=== PATIENT | female | born 1980 | race Caucasian/White ===

== ENCOUNTER 2018-11-14 11:56 | Emergency (ER) | payer BC ==
[2018-11-14] MEDS ORDERED: Ondansetron 4 MG/2 ML SDV IVPUSH ONE (11:57)
[2018-11-14] MEDS ORDERED: Sodium Chloride 0.9% 1,000 ML IV SCH ×2 (12:00→13:30)
--- NOTE | 2018-11-14 12:39 | EDM.PDOC ---
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 3 days ago found out that demise at 8 weeks. cramping started this AM with vaginal bleeding. 1 hour prior to arrival she did faint while on toilet with clot passing. She subsequently had 2 more syncopal episodes. nausea with one emesis. 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 Denies: Fever Respiratory: Denies: Shortness of Breath, Wheezing Cardiovascular: Denies: Chest Pain GI/Abdominal: Reports: Diarrhea ED EXAM, GI/ABD - Physical Exam Exam: See Below Exam Limited By: No Limitations General Appearance: Alert, WD/WN, Moderate Distress Head: Atraumatic, Normocephalic Neck: Normal Inspection, Supple, Non-Tender, Full Range of Motion. No: Lymphadenopathy (R), Lymphadenopathy (L) Respiratory/Chest: No Respiratory Distress, Lungs Clear, Normal Breath Sounds. No: Crackles, Rhonchi, Wheezing Cardiovascular: Regular Rate, Rhythm, No Murmur Course - Vital Signs Last Recorded V/S: Last Vital Signs Temp 35.3 C 11/14/18 12:12 Pulse 79 11/14/18 13:27 Resp 16 11/14/18 12:12 BP 100/57 L 11/14/18 13:27 Pulse Ox 100 11/14/18 13:27 - Orders/Labs/Meds Orders: Active Orders 24 hr Category Date Time Status Sodium Chloride 0.9% [Normal Saline] 1,000 ml Med 11/14/18 12:00 Active IV ASDIRECTED Sodium Chloride 0.9% [Normal Saline] 1,000 ml Med 11/14/18 13:30 Active IV ASDIRECTED Medication Orders Sodium Chloride (Normal Saline) 1,000 mls @ 999 mls/hr IV ASDIRECTED TATIANNA Last Admin: 11/14/18 12:00 Dose: 999 mls/hr Sodium Chloride (Normal Saline) 1,000 mls @ 999 mls/hr IV ASDIRECTED TATIANNA Last Admin: 11/14/18 13:32 Dose: 999 mls/hr Labs: Laboratory Tests 11/14/18 Range/Units 11:57 WBC 12.0 H (4.5-11.0) K/uL RBC 3.69 (3.30-5.50) M/uL Hgb 10.8 L D (12.0-15.0) g/dL Hct 33.2 L (36.0-48.0) % MCV 90 (80-98) fL MCH 29 (27-31) pg MCHC 33 (32-36) % Plt Count 325 (150-400) K/uL Neut % (Auto) 72 H (36-66) % Lymph % (Auto) 17 L (24-44) % [place] % (Auto) 8 H (2-6) % Eos % (Auto) 2 (2-4) % Baso % (Auto) 0 (0-1) % Meds: Medications Generic Name Dose Route Start Last Admin Trade Name Freq PRN Reason Stop Dose Admin Sodium Chloride 1,000 mls @ 999 mls/hr 11/14/18 12:00 11/14/18 12:00 Normal Saline IV 999 mls/hr ASDIRECTED TATIANNA Administration Sodium Chloride 1,000 mls @ 999 mls/hr 11/14/18 13:30 11/14/18 13:32 Normal Saline IV 999 mls/hr ASDIRECTED TATIANNA Administration Discontinued Medications Generic Name Dose Route Start Last Admin Trade Name Freq PRN Reason Stop Dose Admin Ondansetron HCl 4 mg 11/14/18 11:57 11/14/18 12:16 Zofran IVPUSH 11/14/18 11:58 4 mg ONETIME ONE Administration - Re-Assessments/Exams Free Text/Narrative Re-Assessment/Exam: 11/14/18 14:10 nausea resolved. pt did have a small amount of tissue pass vaginally. bleeding has slowed. sister is present at bedside. 11/14/18 14:41 was able to stand without dizziness. Sister will stay with pt at home. was able to urinate ready to go home Departure - Departure Time of Disposition: 14:42 Disposition: Home, Self-Care 01 Condition: Good Clinical Impression: Spontaneous Syncope Qualifiers: Syncope type: vasovagal syncope Qualified Code(s): R55 - Syncope and collapse - Discharge Information *PRESCRIPTION DRUG MONITORING PROGRAM REVIEWED*: Not Applicable *COPY OF PRESCRIPTION DRUG MONITORING REPORT IN PATIENT BEATRICE: Not Applicable Instructions: Syncope, [id number] Referrals: PCP,None [Primary Care Provider] - Forms: ED Department Discharge Additional Instructions: sips of fluids follow-up with facing baster jumpbasting return with increase bleeding, fever, or continued syncope - My Orders Last 24 Hours: My Active Orders 11/14/18 12:00 Sodium Chloride 0.9% [Normal Saline] 1,000 ml IV ASDIRECTED 11/14/18 13:30 Sodium Chloride 0.9% [Normal Saline] 1,000 ml IV ASDIRECTED - Assessment/Plan Last 24 Hours: My Active Orders 11/14/18 12:00 Sodium Chloride 0.9% [Normal Saline] 1,000 ml IV ASDIRECTED 11/14/18 13:30 Sodium Chloride 0.9% [Normal Saline] 1,000 ml IV ASDIRECTED
== END 2018-11-14 14:59 | disposition home or self-care (01) ==
LOC: JP.ED 11:56
DX: O03.9 Complete or unspecified spontaneous abortion without complication (principal)
CPT/HCPCS: 36415; 85025; 96361; 96374; 99284; J2405; J7030

== ENCOUNTER 2020-01-02 09:26 | Observation (INO) | payer BC ==
[2020-01-02] MEDS ORDERED: Sodium Chloride 0.9% 10 ML Syringe FLUSH PRN (10:35)
[2020-01-02] MEDS ORDERED: Sodium Chloride 0.9% 1,000 ML IV SCH (10:45)
[2020-01-02] MEDS ORDERED: Sodium Chloride 0.9% 500 ML IV ONE (10:53)
[2020-01-02] MEDS: Ondansetron 4 MG/2 ML SDV IVPUSH SCH ×2 (11:06→19:41)
[2020-01-02] MEDS ORDERED: hydrOXYzine HCl 25 MG Tab PO PRN (13:03)
--- NOTE | 2020-01-02 13:40 | PCM.LDHP ---
L&D History of Present Illness - General Date of Service: 01/02/20 Admit Problem/Dx: Patient Status Order with Admit Dx/Problem 01/02/20 10:35 Patient Status [ADT] Routine Admission Diagnosis/Problem Admission Diagnosis/Problem Source of Information: Patient History Limitations: Reports: No Limitations - History of Present Illness Introduction:: 01/02/20 Olga is a 39 yo at 29 2/7 weeks here with COVID. She came in due to consistent vomiting and not being able to keep food or fluids down. She originally got a headache last Thursday. Her increased symptoms started Thursday or Thursday last week so she is on day 7 today. She started coughing harshly this past Thursday. Oxygen levels are stable. Baby is active and moving. 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 Denies: Wheezing Cardiovascular: Reports: No Symptoms Gastrointestinal: Reports: Nausea, Vomiting Genitourinary: Reports: Other (decreased urination) Musculoskeletal: Reports: Back Pain, Muscle Pain Skin: Reports: Dryness Psychiatric: Reports: No Symptoms Neurological: Reports: No Symptoms Hematologic/Lymphatic: Reports: Easy Bleeding (nose bleed this weekend) Immunologic: Reports: No Symptoms L&D Exam - Exam Exam: See Below - Vital Signs Vital Signs: Last Vital Signs Temp 36.4 C 01/02/20 09:48 Pulse 117 H 01/02/20 11:00 Resp 18 01/02/20 11:00 BP 122/65 01/02/20 09:48 Pulse Ox 96 01/02/20 13:30 - OB Specific Contraction Frequency (min): none Movement: Active Heart Tones: Present Heart Tones per Min: 150 Heart Rate (FHR) Variability: Moderate (6-25 bmp) Presentation: Vertex - Exam General: Alert, Oriented HEENT: PERRLA, Conjunctiva Clear, Pupils Equal, Pupils Reactive Neck: Supple, Trachea Midline Lungs: Normal Respiratory Effort, Other (fine crackles right base, cleared with coughing) Cardiovascular: Regular Rhythm, Tachycardia. No: Systolic Murmur GI/Abdominal Exam: Normal Bowel Sounds, Soft, Pelvis Stable, Tender Genitourinary: Enlarged uterus Back Exam: Normal Inspection, Full Range of Motion Extremities: Normal Inspection, Normal Range of Motion, Non-Tender, No Pedal Edema Skin: Warm, Dry, Intact Neurological: Cranial Nerves Intact, Reflexes Equal Bilateral Psychiatric: Alert, Normal Affect, Normal Mood - Patient Data Lab Results Last 24 hrs: Laboratory Results - last 24 hr 01/02/20 01/02/20 01/02/20 Range/Units 10:35 10:35 10:35 WBC 7.3 (4.5-11.0) K/uL RBC 4.07 (3.30-5.50) M/uL Hgb 12.1 (12.0-15.0) g/dL Hct 36.8 (36.0-48.0) % MCV 90 (80-98) fL MCH 30 (27-31) pg MCHC 33 (32-36) % Plt Count 60 L (150-400) K/uL Neut % (Auto) 78 H (36-66) % Lymph % (Auto) 13 L (24-44) % [place] % (Auto) 8 H (2-6) % Eos % (Auto) 0 L (2-4) % Baso % (Auto) 0 (0-1) % D-Dimer, Quantitative 534 H (0.0-400.0) ng/mL Sodium 136 L (140-148) mmol/L Potassium 3.2 L (3.6-5.2) mmol/L Chloride 101 (100-108) mmol/L Carbon Dioxide 22 (21-32) mmol/L Anion Gap 16.2 H (5.0-14.0) mmol/L BUN 6 L (7-18) mg/dL Creatinine 0.8 (0.6-1.0) mg/dL Est Cr Clr Drug Dosing TNP Estimated GFR (MDRD) > 60 (>60) Glucose 105 (74-106) mg/dL Calcium 8.2 L (8.5-10.1) mg/dL Ferritin 31 (8-388) ng/ml Total Bilirubin 0.5 (0.2-1.0) mg/dL AST 25 D (15-37) U/L ALT 24 (12-78) U/L Alkaline Phosphatase 141 H (46-116) U/L Lactate Dehydrogenase (82-234) U/L C-Reactive Protein 5.25 H (0.0-0.3) mg/dL Total Protein 6.4 (6.4-8.2) g/dL Albumin 2.2 L (3.4-5.0) g/dL Globulin 4.2 H (2.3-3.5) g/dL Albumin/Globulin Ratio 0.5 L (1.2-2.2) Procalcitonin ng/mL Urine Color (YELLOW) Urine Appearance (CLEAR) Urine pH (5.0-8.0) Ur Specific [place] (1.008-1.030) Urine Protein (NEGATIVE) mg/dL Urine Glucose (UA) (NEGATIVE) mg/dL Urine Ketones (NEGATIVE) mg/dL Urine Occult Blood (NEGATIVE) Urine Nitrite (NEGATIVE) Urine Bilirubin (NEGATIVE) Urine Urobilinogen (0.2-1.0) EU/dL Ur Leukocyte Esterase (NEGATIVE) Urine RBC (0-5) Urine WBC (0-5) Ur Epithelial Cells Amorphous Sediment Urine Bacteria Urine Mucus 01/02/20 01/02/20 01/02/20 Range/Units 10:35 10:35 11:46 WBC (4.5-11.0) K/uL RBC (3.30-5.50) M/uL Hgb (12.0-15.0) g/dL Hct (36.0-48.0) % MCV (80-98) fL MCH (27-31) pg MCHC (32-36) % Plt Count (150-400) K/uL Neut % (Auto) (36-66) % Lymph % (Auto) (24-44) % [place] % (Auto) (2-6) % Eos % (Auto) (2-4) % Baso % (Auto) (0-1) % D-Dimer, Quantitative (0.0-400.0) ng/mL Sodium (140-148) mmol/L Potassium (3.6-5.2) mmol/L Chloride (100-108) mmol/L Carbon Dioxide (21-32) mmol/L Anion Gap (5.0-14.0) mmol/L BUN (7-18) mg/dL Creatinine (0.6-1.0) mg/dL Est Cr Clr Drug Dosing Estimated GFR (MDRD) (>60) Glucose (74-106) mg/dL Calcium (8.5-10.1) mg/dL Ferritin (8-388) ng/ml Total Bilirubin (0.2-1.0) mg/dL AST (15-37) U/L ALT (12-78) U/L Alkaline Phosphatase (46-116) U/L Lactate Dehydrogenase 234 (82-234) U/L C-Reactive Protein (0.0-0.3) mg/dL Total Protein (6.4-8.2) g/dL Albumin (3.4-5.0) g/dL Globulin (2.3-3.5) g/dL Albumin/Globulin Ratio (1.2-2.2) Procalcitonin < 0.05 ng/mL Urine Color Yellow (YELLOW) Urine Appearance Cloudy A (CLEAR) Urine pH 6.5 (5.0-8.0) Ur Specific [place] 1.025 (1.008-1.030) Urine Protein 30 H (NEGATIVE) mg/dL Urine Glucose (UA) Negative (NEGATIVE) mg/dL Urine Ketones >=160 H (NEGATIVE) mg/dL Urine Occult Blood Trace-intact H (NEGATIVE) Urine Nitrite Negative (NEGATIVE) Urine Bilirubin Moderate H (NEGATIVE) Urine Urobilinogen 1.0 (0.2-1.0) EU/dL Ur Leukocyte Esterase Negative (NEGATIVE) Urine RBC 0-5 (0-5) Urine WBC 5-10 H (0-5) Ur Epithelial Cells Moderate Amorphous Sediment Not seen Urine Bacteria Few Urine Mucus Moderate Result Diagrams: 01/02/20 10:35 01/02/20 10:35 - Problem List (1) COVID-19 affecting in third trimester SNOMED Code(s): 408486957, 656638897 ICD Code: O98.513 - OTHER VIRAL DISEASES COMPLICATING , THIRD TRIMESTER; U07.1 - COVID-19 Status: Acute Current Visit: Yes (2) Nausea and vomiting during SNOMED Code(s): 37067955, 010087292 ICD Code: O21.9 - VOMITING OF , UNSPECIFIED Status: Acute Current Visit: Yes (3) Dehydration during SNOMED Code(s): 22766593 ICD Code: O26.899 - OTH RELATED CONDITIONS, UNSPECIFIED TRIMESTER; E86.0 - DEHYDRATION Status: Acute Current Visit: Yes Problem List Initiated/Reviewed/Updated: Yes Orders Last 24hrs: Active Orders 24 hr Category Date Time Status Patient Status [ADT] Routine ADT 01/02/20 10:35 Active Antiembolic Devices [RC] .Routine Care 01/02/20 10:38 Active Non Stress Test [RC] Click to Edit Care 01/02/20 10:35 Active Intake and Output Strict [RC] ASDIRECTED Care 01/02/20 10:35 Active Notify Provider Consults [RC] ASDIRECTED Care 01/02/20 10:39 Active Peripheral IV Care [RC] . DIRECTED Care 01/02/20 10:39 Active Pulse Oximetry [RC] ASDIRECTED Care 01/02/20 10:35 Active Up ad Mary [RC] ASDIRECTED Care 01/02/20 10:35 Active VTE/DVT Education [RC] Click to Edit Care 01/02/20 10:38 Active Vital Signs [RC] Q4H Care 01/02/20 10:35 Active Consult to Physician [CONS] Routine Cons 01/02/20 10:35 Ordered Clear Liquid Diet [DIET] Diet 01/02/20 Lunch Active CBC WITH AUTO DIFF [HEME] AM Lab 01/03/20 05:11 Ordered COMPREHENSIVE METABOLIC PN,CMP [CHEM] AM Lab 01/03/20 05:11 Ordered PREALBUMIN Routine Lab 01/02/20 10:46 Received Acetaminophen [TylenoL] Med 01/02/20 13:08 Active 650 mg PO Q4H PRN Ondansetron [Zofran] Med 01/02/20 11:00 Active 4 mg IVPUSH Q6H Sodium Chloride 0.9% [Normal Saline] 1,000 ml Med 01/02/20 10:45 Active IV ASDIRECTED Sodium Chloride 0.9% [Saline Flush] Med 01/02/20 10:35 Active 10 ml FLUSH ASDIRECTED PRN hydrOXYzine HCL [Atarax] Med 01/02/20 13:03 Active 50 mg PO Q8H PRN DVT/VTE Prophylaxis Reflex [OM.PC] Routine Oth 01/02/20 10:35 Ordered Peripheral IV Insertion Adult [OM.PC] Routine Oth 01/02/20 10:35 Ordered Sequential Compression Device [OM.PC] Routine Oth 01/02/20 10:35 Ordered Resuscitation Status Routine Resus Stat 01/02/20 10:35 Ordered Medication Orders Acetaminophen (Tylenol) 650 mg PO Q4H PRN PRN Reason: Headache Hydroxyzine HCl (Atarax) 50 mg PO Q8H PRN PRN Reason: Nausea Sodium Chloride (Normal Saline) 1,000 mls @ 100 mls/hr IV ASDIRECTED TATIANNA Stop: 01/02/20 15:00 Ondansetron HCl (Zofran) 4 mg IVPUSH Q6H TATIANNA Last Admin: 01/02/20 11:06 Dose: 4 mg Documented by: NINOSKA Sodium Chloride (Saline Flush) 10 ml FLUSH ASDIRECTED PRN PRN Reason: Keep Vein Open Assessment/Plan Comment:: 01/02/20 Assessment: 39 yo at 29 2/7 weeks with COVID-19, day 7 Oxygen saturations are 94-98% at rest Dehydration NST reactive Platelets 60,000 Electrolyte imbalances (see lab) Plan: Called [facility] and consulted OBGYN and hospitalist. Plan will be to keep her here. If oxygen saturations drop or there are any signs of labor we will transfer her. Plan is to hydrate very slowly. 500 ml NS bolus done and now NS running at 75 ml per hour. Stop fluids after 1 L in. Encourage po fluids. NST every 4 hours. Continuous oxygen saturations. Repeat labs in am. Symptom contr ol includes Tylenol, Vistaril for muscle aches and nausea, and Zofran. Lovenox will be ordered. Monitor for platelet change but likely low due to the virus. Plan is to stabilize electrolytes and monitor for decline. No need for steroids, remdesivir, or plasma now due to stable breathing. Hospitalist here will monitor her and consult me if needed for OB problems.
--- NOTE | 2020-01-02 13:44 | PCM.CONS ---
H&P History of Present Illness - General Date of Service: 01/02/20 Admit Problem/Dx: 1. , ~30wk EGA 2. Acute COVID 19 infection Source of Information: Patient History Limitations: Reports: No Limitations - History of Present Illness Initial Comments - Free Text/Narative: Mrs. Olga Cardenas is a 39 F who is approximately 30 wks EGA. She presents to hospital librarian service after 4-5 days of VYAS, cough, nausea with some emesis, fever, anosmia and loss of taste. She notes increasing levels of fatigue and on the 1- 2 days prior to admission the patient was unable to walk distances of ~ 10-15' without becoming profoundly dyspneic. The patient has continued to become weaker and more fatigued ultimately making the decision to come in for assessment. She is otherwise a well, healthy female. She is currently and the fetus currently has good variability and HT at the present. No signs of early labor are noted. The patient does have some evidence of thrombocytopenia which may be a combination of and COVID 19. 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 Denies: Chest Pain, Palpitations, Orthopnea, PND Gastrointestinal: Reports: No Symptoms Musculoskeletal: Reports: No Symptoms Skin: Reports: No Symptoms Psychiatric: Reports: No Symptoms Neurological: Reports: No Symptoms Exam - Exam Exam: See Below - Vital Signs Vital Signs: Last Vital Signs Temp 97.5 F 01/02/20 09:48 Pulse 117 H 01/02/20 11:00 Resp 18 01/02/20 11:00 BP 122/65 01/02/20 09:48 Pulse Ox 96 01/02/20 13:30 - Exam Quality Assessment: Supplemental Oxygen, DVT Prophylaxis. No: [place] e/PICC, Urinary Catheter General: Alert, Oriented, Cooperative, Mild Distress, Lethargic HEENT: PERRLA Neck: Supple, Trachea Midline Lungs: Clear to Auscultation, Normal Respiratory Effort Cardiovascular: Regular Rate, Regular Rhythm, Normal S1, Normal S2 GI/Abdominal Exam: Normal Bowel Sounds, Soft, Non-Tender, No Organomegaly, No Distention, No Mass (Female) Exam: Enlarged Uterus (consistent with gravid uterus) Back Exam: Normal Inspection, Full Range of Motion Extremities: Normal Inspection, Normal Range of Motion, Non-Tender, No Pedal Edema Skin: Warm, Dry, Intact Neurological: Cranial Nerves Intact, Reflexes Equal Bilateral Neuro Extensive - Mental Status: Alert, Oriented x3, Normal Mood/Affect, Normal Cognition, Memory Intact Neuro Extensive - Motor, Sensory, Reflexes: CN II-XII Intact, Normal Gait, Normal Reflexes Psychiatric: Alert, Normal Affect, Normal Mood - Patient Data Lab Results Last 24 hrs: Laboratory Results - last 24 hr 01/02/20 01/02/20 01/02/20 Range/Units 10:35 10:35 10:35 WBC 7.3 (4.5-11.0) K/uL RBC 4.07 (3.30-5.50) M/uL Hgb 12.1 (12.0-15.0) g/dL Hct 36.8 (36.0-48.0) % MCV 90 (80-98) fL MCH 30 (27-31) pg MCHC 33 (32-36) % Plt Count 60 L (150-400) K/uL Neut % (Auto) 78 H (36-66) % Lymph % (Auto) 13 L (24-44) % [place] % (Auto) 8 H (2-6) % Eos % (Auto) 0 L (2-4) % Baso % (Auto) 0 (0-1) % D-Dimer, Quantitative 534 H (0.0-400.0) ng/mL Sodium 136 L (140-148) mmol/L Potassium 3.2 L (3.6-5.2) mmol/L Chloride 101 (100-108) mmol/L Carbon Dioxide 22 (21-32) mmol/L Anion Gap 16.2 H (5.0-14.0) mmol/L BUN 6 L (7-18) mg/dL Creatinine 0.8 (0.6-1.0) mg/dL Est Cr Clr Drug Dosing TNP Estimated GFR (MDRD) > 60 (>60) Glucose 105 (74-106) mg/dL Calcium 8.2 L (8.5-10.1) mg/dL Ferritin 31 (8-388) ng/ml Total Bilirubin 0.5 (0.2-1.0) mg/dL AST 25 D (15-37) U/L ALT 24 (12-78) U/L Alkaline Phosphatase 141 H (46-116) U/L Lactate Dehydrogenase (82-234) U/L C-Reactive Protein 5.25 H (0.0-0.3) mg/dL Total Protein 6.4 (6.4-8.2) g/dL Albumin 2.2 L (3.4-5.0) g/dL Globulin 4.2 H (2.3-3.5) g/dL Albumin/Globulin Ratio 0.5 L (1.2-2.2) Procalcitonin ng/mL Urine Color (YELLOW) Urine Appearance (CLEAR) Urine pH (5.0-8.0) Ur Specific [place] (1.008-1.030) Urine Protein (NEGATIVE) mg/dL Urine Glucose (UA) (NEGATIVE) mg/dL Urine Ketones (NEGATIVE) mg/dL Urine Occult Blood (NEGATIVE) Urine Nitrite (NEGATIVE) Urine Bilirubin (NEGATIVE) Urine Urobilinogen (0.2-1.0) EU/dL Ur Leukocyte Esterase (NEGATIVE) Urine RBC (0-5) Urine WBC (0-5) Ur Epithelial Cells Amorphous Sediment Urine Bacteria Urine Mucus 01/02/20 01/02/20 01/02/20 Range/Units 10:35 10:35 11:46 WBC (4.5-11.0) K/uL RBC (3.30-5.50) M/uL Hgb (12.0-15.0) g/dL Hct (36.0-48.0) % MCV (80-98) fL MCH (27-31) pg MCHC (32-36) % Plt Count (150-400) K/uL Neut % (Auto) (36-66) % Lymph % (Auto) (24-44) % [place] % (Auto) (2-6) % Eos % (Auto) (2-4) % Baso % (Auto) (0-1) % D-Dimer, Quantitative (0.0-400.0) ng/mL Sodium (140-148) mmol/L Potassium (3.6-5.2) mmol/L Chloride (100-108) mmol/L Carbon Dioxide (21-32) mmol/L Anion Gap (5.0-14.0) mmol/L BUN (7-18) mg/dL Creatinine (0.6-1.0) mg/dL Est Cr Clr Drug Dosing Estimated GFR (MDRD) (>60) Glucose (74-106) mg/dL Calcium (8.5-10.1) mg/dL Ferritin (8-388) ng/ml Total Bilirubin (0.2-1.0) mg/dL AST (15-37) U/L ALT (12-78) U/L Alkaline Phosphatase (46-116) U/L Lactate Dehydrogenase 234 (82-234) U/L C-Reactive Protein (0.0-0.3) mg/dL Total Protein (6.4-8.2) g/dL Albumin (3.4-5.0) g/dL Globulin (2.3-3.5) g/dL Albumin/Globulin Ratio (1.2-2.2) Procalcitonin < 0.05 ng/mL Urine Color Yellow (YELLOW) Urine Appearance Cloudy A (CLEAR) Urine pH 6.5 (5.0-8.0) Ur Specific [place] 1.025 (1.008-1.030) Urine Protein 30 H (NEGATIVE) mg/dL Urine Glucose (UA) Negative (NEGATIVE) mg/dL Urine Ketones >=160 H (NEGATIVE) mg/dL Urine Occult Blood Trace-intact H (NEGATIVE) Urine Nitrite Negative (NEGATIVE) Urine Bilirubin Moderate H (NEGATIVE) Urine Urobilinogen 1.0 (0.2-1.0) EU/dL Ur Leukocyte Esterase Negative (NEGATIVE) Urine RBC 0-5 (0-5) Urine WBC 5-10 H (0-5) Ur Epithelial Cells Moderate Amorphous Sediment Not seen Urine Bacteria Few Urine Mucus Moderate Result Diagrams: 01/02/20 10:35 01/02/20 10:35 Sepsis Event Note - Focused Exam Vital Signs: Vital Signs Temp Pulse Resp BP Pulse Ox 01/02/20 13:30 96 01/02/20 11:00 117 H 18 94 L 01/02/20 09:48 97.5 F 104 H 18 122/65 94 L Consult PN Assessment/Plan Procedures: Procedures ASSAY OF LIPASE (05/04/18) CHORIONIC GONADOTROPIN TEST (04/27/19) COMPLETE CBC AUTOMATED (05/04/18) COMPLETE CBC W/AUTO DIFF WBC (11/14/18) COMPREHEN METABOLIC PANEL (05/04/18) EMERGENCY DEPT VISIT (11/14/18) HEPATOBIL SYST IMAGE W/DRUG (05/21/18) HYDRATE IV INFUSION ADD-ON (11/14/18) HYDRATION IV INFUSION INIT (02/24/13) INFLUENZA A/B AG IA (02/24/13) METABOLIC PANEL TOTAL CA (02/24/13) OB US < 14 WKS SINGLE FETUS (04/27/19) OB US >/= 14 WKS SNGL FETUS (10/27/19) ROUTINE VENIPUNCTURE (04/25/19) THER/PROPH/DIAG INJ IV PUSH (11/14/18) TRANSVAGINAL US OBSTETRIC (11/12/18) URINALYSIS AUTO W/SCOPE (11/25/19) US EXAM ABDOM COMPLETE (05/05/18) Problem List Initiated/Reviewed/Updated: Yes Plan: 1. HEENT Experiencing loss of taste, smell d/t COVID 19 See below. 2. Cardiac No issues, stable 3. Respiratory Patient has COVID 19 with features of cough, dyspnea, Odom, loss of taste and smell. - patient is currently stable, not requiring supplemental oxygen. - Not felt to be candidate for dexamethasone at this time given her stability - At this time risk of remdesivir, not well studied in the population outweighs minimal benefit - Likewise patient is not a candidate for convalescent plasma - Oxygen to keep SpO2 between 92-96% - Caution with fluid resuscitation - Very very LOW threshhold for transfer 4. GI No active issues 5. hospital librarian FHT with good variability. No signs of distress presently. Case was discussed by OB with OB in [place]. I do have a very low threshhold for transfer as do our colleagues in [place] - hospital librarian to follow 6. F/E/N Patient noted clinically to be mildly dehydrated - Received 500 mL fluid bolus of 0.9% NS - Run maintenance at 75 mL/hr to complete total infusion of 1L NS. - Monitor clinical status 7. Neuromusculoskeletal No issues 8. Psychiatric Stressed understandably, but otherwise well Disposition: Anticipate home self care in 3-5 days Jonathon Durham M.D. 02 January 2020 Date Consult Requested: 01/02/20 Reason for Consult: COVID 19 in 39 yo 30 wk EGA Patient History Reviewed: Yes Admission H&P Reviewed: Yes Notified Requestor: Yes Time Spent (in minutes): 40
[2020-01-02] MEDS: Acetaminophen 325 MG Tab PO PRN ×2 (16:38→23:29)
[2020-01-02] MEDS ORDERED: Enoxaparin 40 MG/0.4 ML Syringe SUBCUT SCH (17:00)
[2020-01-03] MEDS: Ondansetron 4 MG/2 ML SDV IVPUSH PRN ×2 (08:13→13:25)
[2020-01-03] MEDS: Acetaminophen 325 MG Tab PO PRN (09:04)
[2020-01-03] MEDS ORDERED: Albuterol 8 GM Inhaler INH PRN (10:26)
[2020-01-03] MEDS ORDERED: guaiFENesin/Dextromethorphan 100-10 MG/5 ML Soln 10 ML Cup PO PRN (10:26)
[2020-01-03] MEDS ORDERED: Potassium Chloride 20 MEQ, Lidocaine 1% 2 ML in Sodium Chloride 0.9% 100 ML IV ONE (11:30)
--- NOTE | 2020-01-03 11:40 | PCM.DCSUM1 ---
Discharge Summary - Hospital Course HPI Initial Comments: Mrs. Olga Cardenas is a 39 F who is approximately 30 wks EGA. 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 She notes increasing levels of fatigue and on the 1- 2 days prior to admission the patient was unable to walk distances of ~ 10-15' without becoming profoundly dyspneic. The patient has continued to become weaker and more fatigued ultimately making the decision to come in for assessment. She is otherwise a well, healthy female. She is currently and the fetus currently has good variability and HT at the present. No signs of early labor are noted. The patient does have some evidence of thrombocytopenia which may be a combination of and COVID 19. patient had begun to deteriorate with increased coughing, deoxygenation with these episodes, increased work of breathing and longer periods of time to recover from the episodes. Her oxygen levels have dropped down into the mid 80's at rest and mid 70's with exertional effort. Her work of breathing is noticably increased. She is 30 wks EGA and is a patient. She is also markedly thrombocytopenic with PLT at 52 on 01/03/2020. She has marked crackles in the RLL>>LLL, LML. She is now requiring 2 L NC. After consultation with [facility], it was felt that given the accelerating deterioration of the patient's condition, her care would best be served by transfer to [facility] and to the ICU. Dr. Cardenas has accepted the patient to the ICU. Diagnosis: Stroke: No - Discharge Data Discharge Date: 01/03/20 Discharge Disposition: DC/Tfer to Acute Hospital 02 Condition: Good - Referral to Home Health Primary Care Physician: Melida Mancia CNM - Patient Summary/Data Consults: Consultations 01/02/20 10:35 Consult to Physician [CONS] Routine Consulting Provider: Jonathon Durham Call Completed to Consulting Physician: Yes Reason for Consult: COVID management - Discharge Plan *PRESCRIPTION DRUG MONITORING PROGRAM REVIEWED*: No *COPY OF PRESCRIPTION DRUG MONITORING REPORT IN PATIENT BEATRICE: No Home Medications: Home Meds Acetaminophen [Tylenol] 650 mg PO Q4H PRN tablet 01/03/20 [Rx] Albuterol [Ventolin HFA] 0 gm INH Q4H PRN inhaler 01/03/20 [Rx] Azithromycin [Zithromax] 500 mg IV Q24H vial 01/03/20 [Rx] Dextromethorphan/guaiFENesin [Robitussin DM] 10 ml PO Q4H PRN cup 01/03/20 [Rx] Enoxaparin [Lovenox] 40 mg SUBCUT DAILY@1700 syringe 01/03/20 [Rx] Ondansetron [Zofran] 4 mg IVPUSH Q4H PRN vial 01/03/20 [Rx] cefTRIAXone [Rocephin] 1 gm IV Q24H vial 01/03/20 [Rx] hydrOXYzine HCL [hydrOXYzine] 50 mg PO Q8H PRN tablet 01/03/20 [Rx] - Discharge Summary/Plan Comment DC Time >30 min.: Yes - Patient Data Vitals - Most Recent: Last Vital Signs Temp 95.1 F L 01/03/20 11:17 Pulse 99 01/03/20 11:17 Resp 18 01/03/20 11:17 BP 133/83 01/03/20 11:17 Pulse Ox 96 01/03/20 11:17 Weight - Most Recent: 211 lb I&O - Last 24 hours: Intake & Output 01/02/20 01/03/20 01/03/20 22:59 06:59 14:59 Intake Total 1120 420 150 Output Total 400 500 150 Balance 720 -80 0 Lab Results - Last 24 hrs: Laboratory Results - last 24 hr 01/02/20 01/02/20 01/03/20 Range/Units 10:46 11:46 05:35 WBC (4.5-11.0) K/uL RBC (3.30-5.50) M/uL Hgb (12.0-15.0) g/dL Hct (36.0-48.0) % MCV (80-98) fL MCH (27-31) pg MCHC (32-36) % Plt Count (150-400) K/uL Neut % (Auto) (36-66) % Lymph % (Auto) (24-44) % [place] % (Auto) (2-6) % Eos % (Auto) (2-4) % Baso % (Auto) (0-1) % D-Dimer, Quantitative (0.0-400.0) ng/mL Sodium 139 L (140-148) mmol/L Potassium 3.1 L (3.6-5.2) mmol/L Chloride 105 (100-108) mmol/L Carbon Dioxide 24 (21-32) mmol/L Anion Gap 13.1 (5.0-14.0) mmol/L BUN 4 L (7-18) mg/dL Creatinine 0.7 (0.6-1.0) mg/dL Est Cr Clr Drug Dosing 100.01 mL/min Estimated GFR (MDRD) > 60 (>60) Glucose 97 (74-106) mg/dL Calcium 7.3 L (8.5-10.1) mg/dL Ferritin 31 (8-388) ng/ml Total Bilirubin 0.6 (0.2-1.0) mg/dL AST 23 (15-37) U/L ALT 26 (12-78) U/L Alkaline Phosphatase 121 H (46-116) U/L Lactate Dehydrogenase 234 (82-234) U/L Total Protein 5.4 L (6.4-8.2) g/dL Albumin 1.8 L (3.4-5.0) g/dL Globulin 3.6 H (2.3-3.5) g/dL Albumin/Globulin Ratio 0.5 L (1.2-2.2) Prealbumin 15 (14-35) mg/dL 01/03/20 01/03/20 Range/Units 05:35 05:35 WBC 6.4 (4.5-11.0) K/uL RBC 3.54 (3.30-5.50) M/uL Hgb 10.2 L (12.0-15.0) g/dL Hct 32.2 L (36.0-48.0) % MCV 91 (80-98) fL MCH 29 (27-31) pg MCHC 32 (32-36) % Plt Count 52 L (150-400) K/uL Neut % (Auto) 69 H (36-66) % Lymph % (Auto) 17 L (24-44) % [place] % (Auto) 12 H (2-6) % Eos % (Auto) 2 (2-4) % Baso % (Auto) 0 (0-1) % D-Dimer, Quantitative 301 (0.0-400.0) ng/mL Sodium (140-148) mmol/L Potassium (3.6-5.2) mmol/L Chloride (100-108) mmol/L Carbon Dioxide (21-32) mmol/L Anion Gap (5.0-14.0) mmol/L BUN (7-18) mg/dL Creatinine (0.6-1.0) mg/dL Est Cr Clr Drug Dosing mL/min Estimated GFR (MDRD) (>60) Glucose (74-106) mg/dL Calcium (8.5-10.1) mg/dL Ferritin (8-388) ng/ml Total Bilirubin (0.2-1.0) mg/dL AST (15-37) U/L ALT (12-78) U/L Alkaline Phosphatase (46-116) U/L Lactate Dehydrogenase (82-234) U/L Total Protein (6.4-8.2) g/dL Albumin (3.4-5.0) g/dL Globulin (2.3-3.5) g/dL Albumin/Globulin Ratio (1.2-2.2) Prealbumin (14-35) mg/dL Med Orders - Current: Current Medications Acetaminophen (Tylenol) 650 mg PO Q4H PRN PRN Reason: Headache Last Admin: 01/03/20 09:04 Dose: 650 mg Documented by: Albuterol (Ventolin Hfa) 0 gm INH Q4H PRN PRN Reason: Shortness of Breath Betamethasone Acet/Betameth SodPhos ([place] Soluspan 6 Mg/Ml) 12 mg IM ONETIME ONE Stop: 01/03/20 12:01 Dexamethasone (Dexamethasone) 6 mg PO ONETIME ONE Stop: 01/03/20 11:38 Enoxaparin Sodium (Lovenox) 40 mg SUBCUT DAILY@1700 TATIANNA Last Admin: 01/02/20 16:38 Dose: 40 mg Documented by: Guaifenesin/Dextromethorphan (Robitussin Dm) 10 ml PO Q4H PRN PRN Reason: Cough Last Admin: 01/03/20 11:15 Dose: 10 ml Documented by: Hydroxyzine HCl (Atarax) 50 mg PO Q8H PRN PRN Reason: Nausea Last Admin: 01/02/20 13:34 Dose: 50 mg Documented by: Potassium Chloride 20 meq/Lidocaine HCl 2 ml/ Sodium Chloride 112 mls @ 56 mls/hr IV ONETIME ONE Stop: 01/03/20 13:29 Ceftriaxone Sodium 1 gm/ (Sodium Chloride) 50 mls @ 100 mls/hr IV Q24H [facility] Azithromycin 500 mg/ Sodium (Chloride) 250 mls @ 250 mls/hr IV Q24H [facility] Ondansetron HCl (Zofran) 4 mg IVPUSH Q4H PRN PRN Reason: Nausea Last Admin: 01/03/20 08:13 Dose: 4 mg Documented by: Sodium Chloride (Saline Flush) 10 ml FLUSH ASDIRECTED PRN PRN Reason: Keep Vein Open Discontinued Medications Sodium Chloride (Normal Saline) 1,000 mls @ 75 mls/hr IV ASDIRECTED TATIANNA Stop: 01/02/20 15:00 Sodium Chloride (Normal Saline) 500 mls @ 500 mls/hr IV .BOLUS ONE Stop: 01/02/20 11:52 Last Admin: 01/02/20 11:30 Dose: 500 mls/hr Documented by: Ondansetron HCl (Zofran) 4 mg IVPUSH Q6H [facility] Last Admin: 01/02/20 19:41 Dose: Not Given Documented by: - Exam Quality Assessment: Reports: Supplemental Oxygen, DVT Prophylaxis General: Reports: Alert, Oriented, Cooperative, Mild Distress Lungs: Reports: Crackles (RLL, LLL - RLL>LLL), Other (increased work of breathing.). Denies: Normal Respiratory Effort Cardiovascular: Reports: Regular Rate, Regular Rhythm GI/Abdominal Exam: Normal Bowel Sounds, Other (Gravid, non-tender uterus) Neurological: Reports: No New Focal Deficit Psy/Mental Status: Reports: Alert, Normal Affect, Normal Mood, Anxious (Situationally anxious)
[2020-01-03] MEDS ORDERED: Dexamethasone 2 MG Tab PO ONE (11:45)
[2020-01-03] MEDS ORDERED: Betamethasone Acetate/Betamethasone Sod Phosphate 30 MG/5 ML MDV IM ONE (12:00)
[2020-01-03] MEDS ORDERED: cefTRIAXone 1 GM in Sodium Chloride 0.9% 50 ML IV SCH (12:00)
--- NOTE | 2020-01-03 12:24 | PCM.SN.2 ---
- Free Text/Narrative Note: COVID is being managed by hospitalist here. OB related is being managed by myself. Her NST today is reactive. I consulted Linda as stated yesterday who did not feel transfer was necessary. I consulted OBGYN at [facility] today who recommended calling [facility] for further recommendations. I made a referral call with Dr Durham here. [facility] was called and we spoke with perinatology and an interventionalist (Dr Teixeira and Dr Cardenas). They have accepted Crystal into the ICU. Over the last day here she has had a slight in oxygen saturations, increased work of breathing and SOB, and increased coughing. The worry is that with and COVID she may decompensate and we are not equip here to manage that with a . She has no signs of labor now. Her overall illness has progressed. Her uterus is soft. She has no leaking of fluid, vaginal bleeding. She reports good movement. NST's have been done every 4 hours. Per perinatology she should receive 12 mg Betamethasone IM. I did ask about Magnesium which they do not feel she needs at this time. They do recommend Dexamethasone and antibiotics which are ordered as well. She will transfer by ambulance very soon. Her and her were both consulted.
[2020-01-03] MEDS ORDERED: Azithromycin 500 MG in Sodium Chloride 0.9% 250 ML IV SCH (12:30)
--- NOTE | 2020-01-03 12:57 | CR ---
CHEST: Portable 01/03/2020 11:15 AM CLINICAL HISTORY:Covid, cough, infiltrate COMPARISON:None available FINDINGS: Heart size and pulmonary vascularity are normal. There is patchy density in the right perihilar region and right lung base. There is some faint density in the left perihilar region. IMPRESSION: Bilateral perihilar pulmonary infiltrates right greater than left.
== END 2020-01-03 14:05 ==
LOC: JP.OBCHECK 09:26 → JP.2SS 10:35
PROVIDERS: ADMIT Advanced Practice Midwife; ATTEND Advanced Practice Midwife
DX: O98.513 Other viral diseases complicating pregnancy, third trimester (principal); U07.1 COVID-19; O21.9 Vomiting of pregnancy, unspecified; O99.283 Endocrine, nutritional and metabolic diseases complicating pregnancy, third trimester; E87.8 Other disorders of electrolyte and fluid balance, not elsewhere classified; E86.0 Dehydration; O09.523 Supervision of elderly multigravida, third trimester; Z3A.29 29 weeks gestation of pregnancy
CPT/HCPCS: 36415; 71045; 71045-26; 80053; 81001; 82728; 83615; 84134; 84145; 85025; 85379; 86140; 87040; 94762; 99211; A9270-GY; J0456; J0696; J0702; J1650; J2001; J2405; J3480; J7040; J7050; J8540

== ENCOUNTER 2020-03-10 05:32 | Inpatient (IN) | payer BC ==
[2020-03-10] MEDS ORDERED: Misoprostol 50 MCG (1/2 of 100 MCG) Tab PO ONE (07:53)
[2020-03-10] MEDS ORDERED: Sodium Chloride 0.9% 10 ML Syringe FLUSH PRN ×2 (07:53→16:22)
[2020-03-10] MEDS ORDERED: Acetaminophen 325 MG Tab PO PRN (07:53)
[2020-03-10] MEDS ORDERED: Ondansetron 4 MG/2 ML SDV IV PRN (07:53)
[2020-03-10] MEDS ORDERED: Calcium Carbonate 500 MG Tab.Chew PO PRN (07:53)
[2020-03-10] MEDS ORDERED: fentaNYL 100 MCG/2 ML SDV IVPUSH PRN (07:53)
--- NOTE | 2020-03-10 08:31 | PCM.LDHP ---
L&D History of Present Illness - General Date of Service: 03/10/20 Admit Problem/Dx: Patient Status Order with Admit Dx/Problem 03/10/20 07:54 Patient Status [ADT] Routine Admission Diagnosis/Problem Admission Diagnosis/Problem Term Source of Information: Patient History Limitations: Reports: No Limitations - History of Present Illness Introduction:: 03/10/20 39 yo is here for induction of labor at 39 0/7 due to advanced maternal age and gestational hypertension. She declines headaches or any other s/s of preecp lampsia. She does have trace protein in her urine today. Additional labs were ordered. NST reactive. She worked from home this week and took labetalol PRN for high blood pressure, her swelling improved. She is O positive blood type, rubella immune, all STI negative, GBS negative, and has a starting hgb of 10.3. Her last baby was 10 years ago. She had uneventful vaginal births. She plans to have an epidural. Her is in the room with her. Timing/Duration: Reports: intermittent Improves with: Reports: None Worsens with: Reports: None Associated Symptoms: Denies: vaginal bleeding, vaginal discharge - Related Data Allergies/Adverse Reactions: Allergies Allergy/AdvReac Type Severity Reaction Status Date / Time No Known Allergies Allergy Verified 11/14/18 12:12 Home Medications: Home Meds Acetaminophen [Tylenol] 650 mg PO Q4H PRN tablet 01/03/20 [Rx] Albuterol [Ventolin HFA] 0 gm INH Q4H PRN inhaler 01/03/20 [Rx] Azithromycin [Zithromax] 500 mg IV Q24H vial 01/03/20 [Rx] Dextromethorphan/guaiFENesin [Robitussin DM] 10 ml PO Q4H PRN cup 01/03/20 [Rx] Enoxaparin [Lovenox] 40 mg SUBCUT DAILY@1700 syringe 01/03/20 [Rx] Ondansetron [Zofran] 4 mg IVPUSH Q4H PRN vial 01/03/20 [Rx] cefTRIAXone [Rocephin] 1 gm IV Q24H vial 01/03/20 [Rx] hydrOXYzine HCL [hydrOXYzine] 50 mg PO Q8H PRN tablet 01/03/20 [Rx] Past Medical History HEENT History: Reports: Impaired Vision Respiratory History: Reports: Other (See Below) Other Respiratory History: Covid November Genitourinary History: Reports: UTI, Recurrent ORTHOPEDIC PODIATRIST History: Reports: : 5 Para: 2 LMP (Approximate): Psychiatric History: Reports: Anxiety - Infectious Disease History Infectious Disease History: Reports: Other (See Below) Other Infectious Disease History: currently positive for COVID - Past Surgical History Respiratory Surgical History: Reports: None Female Surgical History: Reports: None Social & Family History - Family History Family Medical History: No Pertinent Family History - Tobacco Use Tobacco Use Status *Q: Never Tobacco User Second Hand Smoke Exposure: No - Caffeine Use Caffeine Use: Reports: None - Recreational Drug Use Recreational Drug Use: No H&P Review of Systems - Review of Systems: Review Of Systems: See Below General: Reports: No Symptoms HEENT: Reports: No Symptoms Pulmonary: Reports: No Symptoms Cardiovascular: Reports: No Symptoms Gastrointestinal: Reports: No Symptoms Genitourinary: Reports: No Symptoms Musculoskeletal: Reports: No Symptoms Skin: Reports: No Symptoms Psychiatric: Reports: No Symptoms Neurological: Reports: No Symptoms Hematologic/Lymphatic: Reports: No Symptoms Immunologic: Reports: No Symptoms L&D Exam - Exam Exam: See Below - Vital Signs Vital Signs: Last Vital Signs Temp Pulse 93 03/10/20 07:13 Resp 18 03/10/20 07:13 BP 144/88 H 03/10/20 07:13 Pulse Ox 97 03/10/20 07:13 Weight: 99.79 kg - OB Specific Contraction Frequency (min): none Movement: Active Heart Tones: Present Heart Rate (FHR) Variability: Moderate (6-25 bmp) Presentation: Vertex Estimated Weight: 8 lb - Menendez Score Menendez Score Cervix Position: Anterior Menendez Score Consistency: Soft Menendez Score Effacement: 31-50% Menendez Score Dilation: 1-2 cm Menendez Score 's Station: -2 Menendez Score Total: 7 - Exam General: Alert, Oriented HEENT: PERRLA, Hearing Intact, Mucosa Moist & [place], Nares Patent, Normal Nasal Septum, Pupils Equal, Pupils Reactive Neck: Supple, Trachea Midline Lungs: Clear to Auscultation, Normal Respiratory Effort Cardiovascular: Regular Rate, Regular Rhythm GI/Abdominal Exam: Normal Bowel Sounds, Soft, Non-Tender, Pelvis Stable Genitourinary: Normal external exam, Cervical dilitation, Enlarged uterus. No: Vaginal bleeding Back Exam: Normal Inspection, Full Range of Motion Extremities: Normal Inspection, Normal Range of Motion, Non-Tender, No Pedal Edema, Normal Capillary Refill Skin: Warm, Dry, Intact Neurological: Cranial Nerves Intact, Reflexes Equal Bilateral Psychiatric: Alert, Normal Affect, Normal Mood - Patient Data Lab Results Last 24 hrs: Laboratory Results - last 24 hr 03/10/20 03/10/20 03/10/20 Range/Units 07:26 07:35 07:35 WBC 8.2 (4.5-11.0) K/uL RBC 3.75 (3.30-5.50) M/uL Hgb 10.3 L (12.0-15.0) g/dL Hct 32.8 L (36.0-48.0) % MCV 88 (80-98) fL MCH 28 (27-31) pg MCHC 31 L (32-36) % Plt Count 355 (150-400) K/uL Urine Color Yellow (YELLOW) Urine Appearance Cloudy A (CLEAR) Urine pH 5.5 (5.0-8.0) Ur Specific [place] 1.025 (1.008-1.030) Urine Protein Trace H (NEGATIVE) mg/dL Urine Glucose (UA) Negative (NEGATIVE) mg/dL Urine Ketones Trace H (NEGATIVE) mg/dL Urine Occult Blood Negative (NEGATIVE) Urine Nitrite Negative (NEGATIVE) Urine Bilirubin Negative (NEGATIVE) Urine Urobilinogen 0.2 (0.2-1.0) EU/dL Ur Leukocyte Esterase Negative (NEGATIVE) Urine RBC 0-5 (0-5) Urine WBC 0-5 (0-5) Ur Epithelial Cells Many Amorphous Sediment Not seen Urine Bacteria Occasional Urine Mucus Many Urine Opiates Screen Negative (NEGATIVE) Ur Oxycodone Screen Negative (NEGATIVE) Urine Methadone Screen Negative (NEGATIVE) Ur Propoxyphene Screen Negative (NEGATIVE) Ur Barbiturates Screen Negative (NEGATIVE) Ur Tricyclics Screen Negative (NEGATIVE) Ur Phencyclidine Scrn Negative (NEGATIVE) Ur Amphetamine Screen Negative (NEGATIVE) U Methamphetamines Scrn Negative (NEGATIVE) Urine MDMA Screen Negative (NEGATIVE) U Benzodiazepines Scrn Negative (NEGATIVE) U Cocaine Metab Screen Negative (NEGATIVE) U Marijuana (THC) Screen Negative (NEGATIVE) Result Diagrams: 03/10/20 07:26 - Problem List (1) Term SNOMED Code(s): 22947603 ICD Code: Z34.90 - ENCNTR FOR SUPRVSN OF NORMAL , UNSP, UNSP TRIMESTER Status: Acute Current Visit: Yes (2) Encounter for induction of labor SNOMED Code(s): 942208589 ICD Code: Z34.90 - ENCNTR FOR SUPRVSN OF NORMAL , UNSP, UNSP TRIMESTER Status: Acute Current Visit: Yes (3) Advanced maternal age (AMA) in SNOMED Code(s): 951252530 ICD Code: [id number] - Status: Acute Current Visit: Yes (4) Gestational hypertension SNOMED Code(s): 613816819 ICD Code: O13.9 - GESTATIONAL HTN W/O SIGNIFICANT PROTEINURIA, UNSP TRIMESTER Status: Acute Current Visit: Yes Qualifiers: Trimester: third trimester Qualified Code(s): O13.3 - Gestational [-induced] hypertension without significant proteinuria, third trimester Problem List Initiated/Reviewed/Updated: No Orders Last 24hrs: Active Orders 24 hr Category Date Time Status Patient Status [ADT] Routine ADT 03/10/20 07:54 Ordered Communication Order [RC] ASDIRECTED Care 03/10/20 07:54 Ordered Notify Provider Vital Signs [RC] PRN Care 03/10/20 07:55 Ordered Notify Provider [RC] PRN Care 03/10/20 07:54 Ordered Up ad Mary [RC] ASDIRECTED Care 03/10/20 07:53 Ordered VTE/DVT Education [RC] Click to Edit Care 03/10/20 07:55 Ordered Regular Diet [DIET] Diet 03/10/20 Breakfast Ordered COMPREHENSIVE METABOLIC PN,CMP [CHEM] Routine Lab 03/10/20 07:59 Ordered LACTATE DEHYDROGENASE,LDH [CHEM] Routine Lab 03/10/20 07:59 Ordered PROTEIN/CREATININE RATIO,URINE [URCHEM] Routine Lab 03/10/20 07:59 Ordered Acetaminophen [TylenoL] Med 03/10/20 07:53 Ordered 650 mg PO Q4H PRN Calcium Carbonate [Tums] Med 03/10/20 07:53 Ordered 1,000 mg PO Q2HR PRN Ondansetron [Zofran] Med 03/10/20 07:53 Ordered 4 mg IV Q4H PRN Oxytocin/Normal Saline [Pitocin in NS 20 Units/1,000 ML Med 03/10/20 08:00 Ordered ] 20 unit in 1,000 ml IV ASDIRECTED Sodium Chloride 0.9% [Saline Flush] Med 03/10/20 07:53 Ordered 10 ml FLUSH ASDIRECTED PRN fentaNYL [Sublimaze] Med 03/10/20 07:53 Ordered 100 mcg IVPUSH Q1H PRN DVT/VTE Prophylaxis Reflex [OM.PC] Routine Oth 03/10/20 07:53 Ordered Saline Lock Insert [OM.PC] Routine Oth 03/10/20 07:54 Ordered Resuscitation Status Routine Resus Stat 03/10/20 07:53 Ordered Medication Orders Acetaminophen (Tylenol) 650 mg PO Q4H PRN PRN Reason: Pain (Mild 1-3) and fever Calcium Carbonate/Glycine (Tums) 1,000 mg PO Q2H PRN PRN Reason: Indigestion Fentanyl (Sublimaze) 100 mcg IVPUSH Q1H PRN PRN Reason: Pain (moderate 4-6) Oxytocin/Sodium Chloride (Pitocin In Ns 20 Units/1,000 Ml) 20 unit in 1,000 mls @ 2,997 mls/hr IV ASDIRECTED TATIANNA; Protocol Ondansetron HCl (Zofran) 4 mg IV Q4H PRN PRN Reason: Nausea/Vomiting Sodium Chloride (Saline Flush) 10 ml FLUSH ASDIRECTED PRN PRN Reason: Keep Vein Open Assessment/Plan Comment:: 03/10/20 Assessment: 39 yo here at 30 0/7 weeks for induction of labor due to AMA and gestational hypertension Normal reflexes, 1 beat clonus on left foot possible Declines headache or spots in vision today FHT's moderate variability and accelerations SVE 1.5/50/-2 Plan: Cytotec 50 mcg placed vaginally Intermittent monitoring after 1 hour Encourage up and moving Plan to reassess at noon Anticipate
--- NOTE | 2020-03-10 12:22 | PCM.PNLD ---
Labor Progress Note - VS & Meds Vital Signs: Last Vital Signs Temp 35.0 C L 03/10/20 09:55 Pulse 77 03/10/20 09:55 Resp 18 03/10/20 09:55 BP 138/77 03/10/20 09:55 Pulse Ox 97 03/10/20 09:55 Active Medications: Current Medications Acetaminophen (Tylenol) 650 mg PO Q4H PRN PRN Reason: Pain (Mild 1-3) and fever Calcium Carbonate/Glycine (Tums) 1,000 mg PO Q2H PRN PRN Reason: Indigestion Fentanyl (Sublimaze) 100 mcg IVPUSH Q1H PRN PRN Reason: Pain (moderate 4-6) Oxytocin/Sodium Chloride (Pitocin In Ns 20 Units/1,000 Ml) 20 unit in 1,000 mls @ 2,997 mls/hr IV ASDIRECTED TATIANNA; Protocol Ondansetron HCl (Zofran) 4 mg IV Q4H PRN PRN Reason: Nausea/Vomiting Sodium Chloride (Saline Flush) 10 ml FLUSH ASDIRECTED PRN PRN Reason: Keep Vein Open Discontinued Medications Misoprostol (Cytotec) 50 mcg PO ONETIME ONE Stop: 03/10/20 07:54 Last Admin: 03/10/20 08:06 Dose: 50 mcg Documented by: - Uterine Contractions Uterine Monitoring Mode: External [place] Contraction Frequency (min): 1-2 Contraction Duration (sec): 40-60 Contraction Intensity: Mild to Moderate Uterine Resting Tone: Soft - Monitoring Monitor Mode: External Ultrasound Heart Rate (FHR) Baseline: 130 Heart Rate (FHR) Variability: Moderate (6-25 bmp) Accelerations: Present, 15x15 Decelerations: None Strip Review: Category I - Vaginal Exam Dilation (cm): 3 Effacement (Percent): 70 Station: -2 Cervical Position: Midposition Sterile Vaginal Exam Performed By: Melida Mancia - Labor Progress (Free Text) Labor Progress: 03/10/19 Patient is feeling contractions in her low abdomen and pelvis. She is nicholas every 1-2 minutes and needs to breath through them. Category 1 tracing. SVE 3/70/-2. No interventions done at this time, will just let her keep nicholas on her own and recheck in 1-2 hours, sooner if needed.
[2020-03-10] MEDS ORDERED: Lactated Ringers 1,000 ML IV SCH ×2 (12:45→13:30)
[2020-03-10] MEDS ORDERED: ePHEDrine 50 MG/ML SDV ONE (12:46)
[2020-03-10] MEDS ORDERED: ePHEDrine 50 MG/ML SDV IVPUSH PRN ×2 (14:21→16:22)
--- NOTE | 2020-03-10 16:21 | PCM.PNLD ---
Labor Progress Note - VS & Meds Vital Signs: Last Vital Signs Temp 36.7 C 03/10/20 15:45 Pulse 60 03/10/20 12:57 Resp 18 03/10/20 12:57 BP 149/100 H 03/10/20 12:57 Pulse Ox 97 03/10/20 09:55 Active Medications: Current Medications Acetaminophen (Tylenol) 650 mg PO Q4H PRN PRN Reason: Pain (Mild 1-3) and fever Calcium Carbonate/Glycine (Tums) 1,000 mg PO Q2H PRN PRN Reason: Indigestion Ephedrine Sulfate (Ephedrine Sulfate) 10 mg IVPUSH ASDIRECTED PRN PRN Reason: Hypotension Fentanyl (Sublimaze) 100 mcg IVPUSH Q1H PRN PRN Reason: Pain (moderate 4-6) Oxytocin/Sodium Chloride (Pitocin In Ns 20 Units/1,000 Ml) 20 unit in 1,000 mls @ 2,997 mls/hr IV ASDIRECTED TATIANNA; Protocol Last Titration: 03/10/20 14:48 Dose: Infused Documented by: Lactated Ringer's (Ringers, Lactated) 1,000 mls @ 125 mls/hr IV ASDIRECTED TATIANNA Ondansetron HCl (Zofran) 4 mg IV Q4H PRN PRN Reason: Nausea/Vomiting Sodium Chloride (Saline Flush) 10 ml FLUSH ASDIRECTED PRN PRN Reason: Keep Vein Open Discontinued Medications Ephedrine Sulfate (Ephedrine Sulfate) Confirm Administered Dose 50 mg .ROUTE .STK-MED ONE Stop: 03/10/20 12:47 Lactated Ringer's (Ringers, Lactated) 1,000 mls @ 999 mls/hr IV ASDIRECTED TATIANNA Last Admin: 03/10/20 13:28 Dose: 999 mls/hr Documented by: Misoprostol (Cytotec) 50 mcg PO ONETIME ONE Stop: 03/10/20 07:54 Last Admin: 03/10/20 08:06 Dose: 50 mcg Documented by: - Uterine Contractions Uterine Monitoring Mode: External [place] Contraction Frequency (min): 1.5-3 Contraction Duration (sec): 60 Contraction Intensity: Moderate to Strong Uterine Resting Tone: Soft - Monitoring Monitor Mode: External Ultrasound Heart Rate (FHR) Baseline: 130 Heart Rate (FHR) Variability: Moderate (6-25 bmp) Accelerations: Present, 15x15 Decelerations: None Strip Review: Category I - Vaginal Exam Dilation (cm): 3 Effacement (Percent): 80 Station: -2 Cervical Position: Anterior Sterile Vaginal Exam Performed By: Melida Mancia - Labor Progress (Free Text) Labor Progress: 03/10/20 SVE 380/-2. Low dose pitocin was started around 1500 due to no cervical change. Head is nicely engaged and I would like to perform AROM but patient would like an epidural prior to that. BANK GUARD called for epidural.
[2020-03-10] MEDS ORDERED: diphenhydrAMINE 50 MG/ML SDV IVPUSH PRN ×2 (16:22)
[2020-03-10] MEDS ORDERED: Naloxone 0.4 MG/ML SDV IVPUSH PRN (16:22)
[2020-03-10] MEDS ORDERED: Ropivacaine 100 ML ONE (16:31)
--- NOTE | 2020-03-10 17:36 | PCM.PNLD ---
Labor Progress Note - VS & Meds Vital Signs: Last Vital Signs Temp 36.7 C 03/10/20 15:45 Pulse 89 03/10/20 17:05 Resp 18 03/10/20 17:05 BP 128/78 03/10/20 17:05 Pulse Ox 98 03/10/20 17:05 Active Medications: Current Medications Acetaminophen (Tylenol) 650 mg PO Q4H PRN PRN Reason: Pain (Mild 1-3) and fever Calcium Carbonate/Glycine (Tums) 1,000 mg PO Q2H PRN PRN Reason: Indigestion Diphenhydramine HCl (Benadryl) 25 mg IVPUSH Q6H PRN PRN Reason: Itching Diphenhydramine HCl (Benadryl) 50 mg IVPUSH Q6H PRN PRN Reason: Itching Ephedrine Sulfate (Ephedrine Sulfate) 10 mg IVPUSH ASDIRECTED PRN PRN Reason: Hypotension Ephedrine Sulfate (Ephedrine Sulfate) 10 mg IVPUSH ASDIRECTED PRN PRN Reason: Hypotension Fentanyl (Sublimaze) 100 mcg IVPUSH Q1H PRN PRN Reason: Pain (moderate 4-6) Oxytocin/Sodium Chloride (Pitocin In Ns 20 Units/1,000 Ml) 20 unit in 1,000 mls @ 2,997 mls/hr IV ASDIRECTED [facility]; Protocol Last Titration: 03/10/20 14:48 Dose: Infused Documented by: Lactated Ringer's (Ringers, Lactated) 1,000 mls @ 125 mls/hr IV ASDIRECTED [facility] Last Admin: 03/10/20 17:06 Dose: 125 mls/hr Documented by: Naloxone HCl (Narcan) 0.1 mg IVPUSH ASDIRECTED PRN PRN Reason: Oversedation Ondansetron HCl (Zofran) 4 mg IV Q4H PRN PRN Reason: Nausea/Vomiting Sodium Chloride (Saline Flush) 10 ml FLUSH ASDIRECTED PRN PRN Reason: Keep Vein Open Sodium Chloride (Saline Flush) 10 ml FLUSH ASDIRECTED PRN PRN Reason: Keep Vein Open Discontinued Medications Ephedrine Sulfate (Ephedrine Sulfate) Confirm Administered Dose 50 mg .ROUTE .[facility]-MED ONE Stop: 03/10/20 12:47 Lactated Ringer's (Ringers, Lactated) 1,000 mls @ 999 mls/hr IV ASDIRECTED [facility] Last Admin: 03/10/20 13:28 Dose: 999 mls/hr Documented by: Ropivacaine (Naropin 0.2%) Confirm Administered Dose 100 mls @ as directed .ROUTE .STK-MED ONE Stop: 03/10/20 16:32 Misoprostol (Cytotec) 50 mcg PO ONETIME ONE Stop: 03/10/20 07:54 Last Admin: 03/10/20 08:06 Dose: 50 mcg Documented by: - Uterine Contractions Uterine Monitoring Mode: External [place] Contraction Frequency (min): 1-2 Contraction Duration (sec): 60 Contraction Intensity: Moderate to Strong Uterine Resting Tone: Soft - Monitoring Monitor Mode: External Ultrasound Heart Rate (FHR) Baseline: 130 Heart Rate (FHR) Variability: Moderate (6-25 bmp) Accelerations: Present, 15x15 Decelerations: None, Variable Strip Review: Category I - Vaginal Exam Dilation (cm): 4 Effacement (Percent): 80 Station: -2 Cervical Position: Anterior Sterile Vaginal Exam Performed By: Melida Mancia - Labor Progress (Free Text) Labor Progress: 03/10/20 Patient is comfortable with epidural in place. Good movement of legs still. BP's have been good. SVE at 1710 was 4/80/-2 and AROM with moderate amount of clear fluid. Nice contraction pattern now and category 1 tracing.
--- NOTE | 2020-03-10 18:40 | ANES ---
DATE OF SERVICE: 03/10/2020 INDICATIONS: Ms. Cardenas is a 39-year-old female patient who I was referred to the Labor and Delivery Unit by Melida Mancia CNM, to evaluate her for a labor epidural. She is approximately 3 cm and 80% effaced. She would like an epidural. Please see the orders for the patient's preprocedure diagnosis. Risks and benefits of procedure were explained to the patient. She wished to proceed with the labor epidural. TECHNIQUE: She was placed in a sitting position. Her back was prepped x3 with Betadine and 1% lidocaine skin local was used. The epidural was placed at L3-4 using a 17-gauge Tuohy needle in loss of resistance technique. The epidural had very good feel throughout, and the epidural space was easily identified. There was negative CSF, negative blood, and negative paresthesias noted. Therefore, a catheter was threaded to 12 cm at the skin. There was negative CSF, negative blood, and negative paresthesias noted with the catheter as well. A 3 mL test dose of 1.5% lidocaine with epinephrine was given, and this test dose was negative. The catheter was then secured with Tegaderm and tape, and the patient was placed in a supine position. A 12 mL bolus of 0.2% ropivacaine was given. She had good relief from the initial bolus. Therefore, a 0.2% ropivacaine drip was started at 12 mL/h. Her vital signs remained stable throughout the procedure. Nurse was with me for the entire procedure. There were no anesthesia complications noted. We will continue to monitor her. Hugo Back CRNA /[id number]
[2020-03-10] MEDS ORDERED: Docusate Sodium 100 MG Cap PO PRN (19:12)
[2020-03-10] MEDS ORDERED: Benzocaine 20% Top Spray 56 GM Bottle TOP PRN (19:12)
[2020-03-10] MEDS ORDERED: Lanolin 100% Cream 40 GM Tube TOP PRN (19:12)
--- NOTE | 2020-03-10 19:20 | PCM.DEL ---
L & D Note - General Info Date of Service: 03/10/20 Mother's Due Date: 03/17/20 - Delivery Note Labor: Augmented by ARM, Augmented by Oxytocin Cervical Ripening Method: Misoprostil Delivery Outcome: Livebirth Infant Delivery Method: Spontaneous Vaginal Delivery-Single Delivery Mode: Spontaneous Presentation: Right Occiput Anterior (MARCO) Nuchal Cord: Present (x 2, loose, reduced easily) Anesthesia Type: Epidural Amniotic Fluid Description: Clear Episiotomy Type: None Laceration: None Placenta: Intact, Spontaneous Cord: 3 Vessels Estimated Blood Loss: 150 Resuscitation Needed: No : Warmed, [place] Used Provider: Hugo Brito Score 1 min: 9 Score 5 min: 10 Second Stage Interventions: Reports: Second Nurse Assessed Progress of Descent, Second Nurse Reviewed Contraction Pattern, Second Nurse Reviewed Heart Tones, Encouragement Given, Pushing Involuntarily, Pushing, McRobert's Position Delivery Comments (Free Text/Narrative):: 03/10/20 39 yo G5 now P3 delivered viable female infant at 1851 at 39 0/7 weeks. She was induced this am with Cytotec and was augmented with AROM of clear fluid and oxytocin. She had an epidural for anesthesia. She made slow progress during the day. She progressed very quickly at the end and was involuntarily pushing. She pushed only one minute and had a baby girl in MARCO position. There was a nuchal cord x 2 that was loose. She was immediately placed on mothers chest and cried spontaneously. Delayed cord clamping complete for 3 minutes. The placenta delivered spontaneously intact with a 3 vessel cord. EBL 150 ml. There were no perineal, vaginal, or cervical lacerations. Pitocin given for stage 3, fundus firm. Apgars 9, 10. Stages of labor: 1: 5560-4437 2: 6730-4368 3: 9414-0550 Induction Criteria - Menendez Score Menendez Score Dilation: 1-2 cm Menendez Score Effacement: 40-50% Menendez Score 's Station: -2 Menendez Score Consistency: Soft Menendez Score Cervix Position: Anterior Menendez Score Total: 7 Menendez Score Presenting Part: Reports: Cephalic - Induction Gestational Age >/= 39 wks: Yes Estimated Pelvis: Reports: Adequate Reassuring Monitoring Strip: Yes Absence of Tachy Systole: Yes - Augmentation Estimated Pelvis: Reports: Adequate Weight Estimated:: Reports: AGA Reassuring Monitoring Strip: Yes Absence of Tachy Systole: Yes - General Info Date of Service: 03/10/20 Functional Status: Reports: Pain Controlled - Review of Systems General: Reports: No Symptoms HEENT: Reports: No Symptoms Pulmonary: Reports: No Symptoms Cardiovascular: Reports: No Symptoms Gastrointestinal: Reports: No Symptoms Genitourinary: Reports: No Symptoms Musculoskeletal: Reports: No Symptoms Skin: Reports: No Symptoms Neurological: Reports: No Symptoms Psychiatric: Reports: No Symptoms - Patient Data Vitals - Most Recent: Last Vital Signs Temp 36.7 C 03/10/20 15:45 Pulse 79 03/10/20 17:15 Resp 18 03/10/20 17:05 BP 129/65 03/10/20 17:15 Pulse Ox 98 03/10/20 17:05 Weight - Most Recent: 99.79 kg Lab Results Last 24 Hours: Laboratory Results - last 24 hr 03/10/20 03/10/20 03/10/20 Range/Units 07:26 07:26 07:26 WBC 8.2 (4.5-11.0) K/uL RBC 3.75 (3.30-5.50) M/uL Hgb 10.3 L (12.0-15.0) g/dL Hct 32.8 L (36.0-48.0) % MCV 88 (80-98) fL MCH 28 (27-31) pg MCHC 31 L (32-36) % Plt Count 355 (150-400) K/uL Sodium 137 L (140-148) mmol/L Potassium 4.2 (3.6-5.2) mmol/L Chloride 106 (100-108) mmol/L Carbon Dioxide 20 L (21-32) mmol/L Anion Gap 15.2 H (5.0-14.0) mmol/L BUN 6 L (7-18) mg/dL Creatinine 0.7 (0.6-1.0) mg/dL Est Cr Clr Drug Dosing TNP Estimated GFR (MDRD) > 60 (>60) Glucose 96 (74-106) mg/dL Calcium 8.6 D (8.5-10.1) mg/dL Total Bilirubin 0.3 (0.2-1.0) mg/dL AST 18 (15-37) U/L ALT 19 (12-78) U/L Alkaline Phosphatase 164 H (46-116) U/L Lactate Dehydrogenase 181 (82-234) U/L Total Protein 5.9 L (6.4-8.2) g/dL Albumin 2.3 L (3.4-5.0) g/dL Globulin 3.6 H (2.3-3.5) g/dL Albumin/Globulin Ratio 0.6 L (1.2-2.2) Urine Color (YELLOW) Urine Appearance (CLEAR) Urine pH (5.0-8.0) Ur Specific Gamaliel (1.008-1.030) Urine Protein (NEGATIVE) mg/dL Urine Glucose (UA) (NEGATIVE) mg/dL Urine Ketones (NEGATIVE) mg/dL Urine Occult Blood (NEGATIVE) Urine Nitrite (NEGATIVE) Urine Bilirubin (NEGATIVE) Urine Urobilinogen (0.2-1.0) EU/dL Ur Leukocyte Esterase (NEGATIVE) Urine RBC (0-5) Urine WBC (0-5) Ur Epithelial Cells Amorphous Sediment Urine Bacteria Urine Mucus Ur Random Creatinine 193.9 (20.0-370.0) mg/dL U Random Total Protein 30.1 H (6.0-11.9) mg/dL Protein/Creatinin Ratio 155.2 (21.0-161.0) mg/g Urine Opiates Screen (NEGATIVE) Ur Oxycodone Screen (NEGATIVE) Urine Methadone Screen (NEGATIVE) Ur Propoxyphene Screen (NEGATIVE) Ur Barbiturates Screen (NEGATIVE) Ur Tricyclics Screen (NEGATIVE) Ur Phencyclidine Scrn (NEGATIVE) Ur Amphetamine Screen (NEGATIVE) U Methamphetamines Scrn (NEGATIVE) Urine MDMA Screen (NEGATIVE) U Benzodiazepines Scrn (NEGATIVE) U Cocaine Metab Screen (NEGATIVE) U Marijuana (THC) Screen (NEGATIVE) 03/10/20 03/10/20 Range/Units 07:35 07:35 WBC (4.5-11.0) K/uL RBC (3.30-5.50) M/uL Hgb (12.0-15.0) g/dL Hct (36.0-48.0) % MCV (80-98) fL MCH (27-31) pg MCHC (32-36) % Plt Count (150-400) K/uL Sodium (140-148) mmol/L Potassium (3.6-5.2) mmol/L Chloride (100-108) mmol/L Carbon Dioxide (21-32) mmol/L Anion Gap (5.0-14.0) mmol/L BUN (7-18) mg/dL Creatinine (0.6-1.0) mg/dL Est Cr Clr Drug Dosing Estimated GFR (MDRD) (>60) Glucose (74-106) mg/dL Calcium (8.5-10.1) mg/dL Total Bilirubin (0.2-1.0) mg/dL AST (15-37) U/L ALT (12-78) U/L Alkaline Phosphatase (46-116) U/L Lactate Dehydrogenase (82-234) U/L Total Protein (6.4-8.2) g/dL Albumin (3.4-5.0) g/dL Globulin (2.3-3.5) g/dL Albumin/Globulin Ratio (1.2-2.2) Urine Color Yellow (YELLOW) Urine Appearance Cloudy A (CLEAR) Urine pH 5.5 (5.0-8.0) Ur Specific Gamaliel 1.025 (1.008-1.030) Urine Protein Trace H (NEGATIVE) mg/dL Urine Glucose (UA) Negative (NEGATIVE) mg/dL Urine Ketones Trace H (NEGATIVE) mg/dL Urine Occult Blood Negative (NEGATIVE) Urine Nitrite Negative (NEGATIVE) Urine Bilirubin Negative (NEGATIVE) Urine Urobilinogen 0.2 (0.2-1.0) EU/dL Ur Leukocyte Esterase Negative (NEGATIVE) Urine RBC 0-5 (0-5) Urine WBC 0-5 (0-5) Ur Epithelial Cells Many Amorphous Sediment Not seen Urine Bacteria Occasional Urine Mucus Many Ur Random Creatinine (20.0-370.0) mg/dL U Random Total Protein (6.0-11.9) mg/dL Protein/Creatinin Ratio (21.0-161.0) mg/g Urine Opiates Screen Negative (NEGATIVE) Ur Oxycodone Screen Negative (NEGATIVE) Urine Methadone Screen Negative (NEGATIVE) Ur Propoxyphene Screen Negative (NEGATIVE) Ur Barbiturates Screen Negative (NEGATIVE) Ur Tricyclics Screen Negative (NEGATIVE) Ur Phencyclidine Scrn Negative (NEGATIVE) Ur Amphetamine Screen Negative (NEGATIVE) U Methamphetamines Scrn Negative (NEGATIVE) Urine MDMA Screen Negative (NEGATIVE) U Benzodiazepines Scrn Negative (NEGATIVE) U Cocaine Metab Screen Negative (NEGATIVE) U Marijuana (THC) Screen Negative (NEGATIVE) Med Orders - Current: Current Medications Acetaminophen (Tylenol) 650 mg PO Q4H PRN PRN Reason: Pain (Mild 1-3) and fever Calcium Carbonate/Glycine (Tums) 1,000 mg PO Q2H PRN PRN Reason: Indigestion Diphenhydramine HCl (Benadryl) 25 mg IVPUSH Q6H PRN PRN Reason: Itching Diphenhydramine HCl (Benadryl) 50 mg IVPUSH Q6H PRN PRN Reason: Itching Ephedrine Sulfate (Ephedrine Sulfate) 10 mg IVPUSH ASDIRECTED PRN PRN Reason: Hypotension Ephedrine Sulfate (Ephedrine Sulfate) 10 mg IVPUSH ASDIRECTED PRN PRN Reason: Hypotension Fentanyl (Sublimaze) 100 mcg IVPUSH Q1H PRN PRN Reason: Pain (moderate 4-6) Oxytocin/Sodium Chloride (Pitocin In Ns 20 Units/1,000 Ml) 20 unit in 1,000 mls @ 2,997 mls/hr IV ASDIRECTED [facility]; Protocol Last Titration: 03/10/20 14:48 Dose: Infused Documented by: Lactated Ringer's (Ringers, Lactated) 1,000 mls @ 125 mls/hr IV ASDIRECTED [facility] Last Admin: 03/10/20 17:06 Dose: 125 mls/hr Documented by: Naloxone HCl (Narcan) 0.1 mg IVPUSH ASDIRECTED PRN PRN Reason: Oversedation Ondansetron HCl (Zofran) 4 mg IV Q4H PRN PRN Reason: Nausea/Vomiting Sodium Chloride (Saline Flush) 10 ml FLUSH ASDIRECTED PRN PRN Reason: Keep Vein Open Sodium Chloride (Saline Flush) 10 ml FLUSH ASDIRECTED PRN PRN Reason: Keep Vein Open Discontinued Medications Ephedrine Sulfate (Ephedrine Sulfate) Confirm Administered Dose 50 mg .ROUTE .STK-MED ONE Stop: 03/10/20 12:47 Last Admin: 03/10/20 18:13 Dose: Not Given Documented by: Lactated Ringer's (Ringers, Lactated) 1,000 mls @ 999 mls/hr IV ASDIRECTED [facility] Last Admin: 03/10/20 13:28 Dose: 999 mls/hr Documented by: Ropivacaine (Naropin 0.2%) Confirm Administered Dose 100 mls @ as directed .ROUTE .STK-MED ONE Stop: 03/10/20 16:32 Misoprostol (Cytotec) 50 mcg PO ONETIME ONE Stop: 03/10/20 07:54 Last Admin: 03/10/20 08:06 Dose: 50 mcg Documented by: - Exam General: Alert, Oriented HEENT: Pupils Equal, Pupils Reactive, Mucous Membr. Moist/[place]mo Neck: Supple Lungs: Clear to Auscultation, Normal Respiratory Effort Cardiovascular: Regular Rate, Regular Rhythm GI/Abdominal Exam: Normal Bowel Sounds, Soft, Pelvis Stable (Female) Exam: Normal External Exam, Normal Bimanual Exam, Cervical Dilatation, Enlarged Uterus, Vaginal Bleeding Back Exam: Normal Inspection, Full Range of Motion Extremities: Normal Inspection, Normal Range of Motion, Non-Tender, Normal Capillary Refill, Pedal Edema Skin: Warm, Dry, Intact Neurological: No New Focal Deficit Psy/Mental Status: Alert, Normal Affect, Normal Mood - Problem List & Annotations (1) Term SNOMED Code(s): 68426353 Code(s): Z34.90 - ENCNTR FOR SUPRVSN OF NORMAL , UNSP, UNSP TRIMESTER Status: Acute Current Visit: Yes (2) Encounter for induction of labor SNOMED Code(s): 435080084 Code(s): Z34.90 - ENCNTR FOR SUPRVSN OF NORMAL , UNSP, UNSP TRIMESTER Status: Acute Current Visit: Yes (3) Advanced maternal age (AMA) in SNOMED Code(s): 316223003 Code(s): TQT6481 - Status: Acute Current Visit: Yes (4) Gestational hypertension SNOMED Code(s): 767444584 Code(s): O13.9 - GESTATIONAL HTN W/O SIGNIFICANT PROTEINURIA, UNSP TRIMESTER Status: Acute Current Visit: Yes Qualifiers: Trimester: third trimester Qualified Code(s): O13.3 - Gestational [-induced] hypertension without significant proteinuria, third trimester (5) Vaginal delivery SNOMED Code(s): 654830729 Code(s): O80 - ENCOUNTER FOR FULL-TERM UNCOMPLICATED DELIVERY Status: Acute Current Visit: Yes - Problem List Review Problem List Initiated/Reviewed/Updated: Yes - My Orders Last 24 Hours: My Active Orders 03/10/20 07:53 Up ad Mary [RC] ASDIRECTED Acetaminophen [TylenoL] 650 mg PO Q4H PRN Calcium Carbonate [Tums] 1,000 mg PO Q2H PRN Ondansetron [Zofran] 4 mg IV Q4H PRN Sodium Chloride 0.9% [Saline Flush] 10 ml FLUSH ASDIRECTED PRN fentaNYL [Sublimaze] 100 mcg IVPUSH Q1H PRN DVT/VTE Prophylaxis Reflex [OM.PC] Routine Resuscitation Status Routine 03/10/20 07:54 Patient Status [ADT] Routine Communication Order [RC] ASDIRECTED Notify Provider [RC] PRN Saline Lock Insert [OM.PC] Routine 03/10/20 07:55 Notify Provider Vital Signs [RC] PRN VTE/DVT Education [RC] Click to Edit 03/10/20 Breakfast Regular Diet [DIET] Oxytocin/Normal Saline [Pitocin in NS 20 Units/1,000 ML] 20 unit in 1,000 ml IV ASDIRECTED 03/10/20 13:30 Lactated Ringers [Ringers, Lactated] 1,000 ml IV ASDIRECTED 03/10/20 14:21 ePHEDrine [ePHEDrine sulfate] 10 mg IVPUSH ASDIRECTED PRN 03/10/20 14:22 Communication Order [RC] ASDIRECTED Urinary Catheter Assessment [RC] ASDIRECTED Epidural Catheter Management [OM.PC] Urgent 03/10/20 14:30 Insert Urinary Catheter [OM.PC] ASDIRECTED 03/10/20 19:12 Consult to Recreation Activities Coordinator [CONS] Routine Benzocaine [Qpcs-E-Vnluerp 20% Tad] See Dose Instructions TOP Q4H PRN Docusate Sodium [Colace] 100 mg PO BID PRN Lanolin [Lansinoh HPA] 1 gm TOP ASDIRECTED PRN Assess Lochia [WOMSER] Per Unit Routine Assess Uterine Involution [WOMSER] Per Unit Routine 03/10/20 19:13 Patient Status [ADT] Routine Vital Signs [RC] PFP Ice Therapy [OM.PC] Per Unit Routine Perineal Care [OM.PC] Per Unit Routine Sitz Bath [OM.PC] Per Unit Routine 03/11/20 05:11 CBC WITH AUTO DIFF [HEME] AM 01/10/21 08:00 Ferrous Sulfate 325 mg PO WITHBREAKFAST - Assessment Assessment:: 03/10/20 39 yo delivered female at 39 0/7 weeks Perineum intact FF and EBL 150 ml Plans to breastfeed No complications at delivery - Plan Plan:: 03/10/20 Assessment: 39 yo here at 30 0/7 weeks for induction of labor due to AMA and gestational hypertension Normal reflexes, 1 beat clonus on left foot possible Declines headache or spots in vision today FHT's moderate variability and accelerations SVE 1.5/50/-2 Plan: Cytotec 50 mcg placed vaginally Intermittent monitoring after 1 hour Encourage up and moving Plan to reassess at noon Anticipate 03/10/20 support Routine pp cares Anticipate discharge 24-48 hours
[2020-03-10] MEDS ORDERED: Acetaminophen 325 MG Tab, 50 Tab Bulk Bottle PO PRN (19:33)
[2020-03-10] MEDS ORDERED: Ibuprofen 200 MG Tab, 24 Tab Bulk Bottle PO PRN (19:33)
[2020-03-11] MEDS ORDERED: Ferrous Sulfate 325 MG Tab PO SCH (08:00)
--- NOTE | 2020-03-11 09:24 | PCM.PNPP ---
- General Info Date of Service: 03/11/20 Functional Status: Reports: Pain Controlled - Review of Systems General: Reports: No Symptoms HEENT: Reports: No Symptoms Pulmonary: Reports: No Symptoms Cardiovascular: Reports: No Symptoms Gastrointestinal: Reports: No Symptoms Genitourinary: Reports: No Symptoms Musculoskeletal: Reports: No Symptoms Skin: Reports: No Symptoms Neurological: Reports: No Symptoms Psychiatric: Reports: No Symptoms - General Info Date of Service: 03/11/20 - Patient Data Vital Signs - Most Recent: Last Vital Signs Temp 36.8 C 03/11/20 07:19 Pulse 81 03/11/20 07:19 Resp 18 03/11/20 07:19 BP 130/81 03/11/20 07:19 Pulse Ox 97 03/11/20 07:19 Weight - Most Recent: 99.79 kg I&O - Last 24 Hours: Intake & Output 03/10/20 03/11/20 03/11/20 22:59 06:59 14:59 Intake Total 1000 1250 Output Total 400 Balance 600 1250 Lab Results - Last 24 Hours: Laboratory Results - last 24 hr 03/11/20 Range/Units 05:09 WBC 12.1 H (4.5-11.0) K/uL RBC 3.67 (3.30-5.50) M/uL Hgb 10.1 L (12.0-15.0) g/dL Hct 32.2 L (36.0-48.0) % MCV 88 (80-98) fL MCH 28 (27-31) pg MCHC 31 L (32-36) % Plt Count 344 (150-400) K/uL Neut % (Auto) 74 H (36-66) % Lymph % (Auto) 16 L (24-44) % [place] % (Auto) 10 H (2-6) % Eos % (Auto) 1 L (2-4) % Baso % (Auto) 0 (0-1) % Med Orders - Current: Current Medications Acetaminophen (Tylenol) 650 mg PO Q4H PRN PRN Reason: Pain (Mild 1-3) and fever Last Admin: 03/10/20 21:44 Dose: 650 mg Documented by: Acetaminophen (Tylenol Bulk Bottle) 325 - 650 mg PO Q4H PRN PRN Reason: Pain Benzocaine (Miez-M-Kfgeoio 20% Fischer) 0 gm TOP Q4H PRN PRN Reason: Perineal Comfort Measure Calcium Carbonate/Glycine (Tums) 1,000 mg PO Q2H PRN PRN Reason: Indigestion Diphenhydramine HCl (Benadryl) 25 mg IVPUSH Q6H PRN PRN Reason: Itching Diphenhydramine HCl (Benadryl) 50 mg IVPUSH Q6H PRN PRN Reason: Itching Docusate Sodium (Colace) 100 mg PO BID PRN PRN Reason: Constipation Emollient Ointment (Lansinoh Hpa) 1 gm TOP ASDIRECTED PRN PRN Reason: Sore Nipples Ephedrine Sulfate (Ephedrine Sulfate) 10 mg IVPUSH ASDIRECTED PRN PRN Reason: Hypotension Ephedrine Sulfate (Ephedrine Sulfate) 10 mg IVPUSH ASDIRECTED PRN PRN Reason: Hypotension Fentanyl (Sublimaze) 100 mcg IVPUSH Q1H PRN PRN Reason: Pain (moderate 4-6) Ferrous Sulfate (Ferrous Sulfate) 325 mg PO WITHBREAKFAST [facility] Oxytocin/Sodium Chloride (Pitocin In Ns 20 Units/1,000 Ml) 20 unit in 1,000 mls @ 2,997 mls/hr IV ASDIRECTED TATIANNA; Protocol Last Titration: 03/10/20 14:48 Dose: Infused Documented by: Lactated Ringer's (Ringers, Lactated) 1,000 mls @ 125 mls/hr IV ASDIRECTED TATIANNA Last Admin: 03/10/20 17:06 Dose: 125 mls/hr Documented by: Ibuprofen (Motrin Bulk Bottle) 600 mg PO Q6H PRN PRN Reason: Pain Last Admin: 03/10/20 21:42 Dose: 600 mg Documented by: Naloxone HCl (Narcan) 0.1 mg IVPUSH ASDIRECTED PRN PRN Reason: Oversedation Ondansetron HCl (Zofran) 4 mg IV Q4H PRN PRN Reason: Nausea/Vomiting Sodium Chloride (Saline Flush) 10 ml FLUSH ASDIRECTED PRN PRN Reason: Keep Vein Open Sodium Chloride (Saline Flush) 10 ml FLUSH ASDIRECTED PRN PRN Reason: Keep Vein Open Discontinued Medications Ephedrine Sulfate (Ephedrine Sulfate) Confirm Administered Dose 50 mg .ROUTE .[facility]-MED ONE Stop: 03/10/20 12:47 Last Admin: 03/10/20 18:13 Dose: Not Given Documented by: Lactated Ringer's (Ringers, Lactated) 1,000 mls @ 999 mls/hr IV ASDIRECTED TATIANNA Last Admin: 03/10/20 13:28 Dose: 999 mls/hr Documented by: Ropivacaine (Naropin 0.2%) Confirm Administered Dose 100 mls @ as directed .ROUTE .[facility]-MED ONE Stop: 03/10/20 16:32 Misoprostol (Cytotec) 50 mcg PO ONETIME ONE Stop: 03/10/20 07:54 Last Admin: 03/10/20 08:06 Dose: 50 mcg Documented by: - Interaction Infant Disposition, : [place] in Room with Family Infant Interaction: Holding Infant Feeding: Breastfed ; Nursed Well Support Person: - Recovery Exam Fundal Tone: Firm Fundal Level: At Umbilicus Fundal Placement: Midline Lochia Amount: Small Lochia Color: Rubra/Red Perineum Description: Intact, Minimal Bruising/Swelling Episiotomy/Laceration: None Bladder Status: Voiding Urinary Elimination: Voided - Exam General: Alert, Oriented HEENT: Pupils Equal, Pupils Reactive, Mucous Membr. Moist/[place] Neck: Supple Lungs: Clear to Auscultation, Normal Respiratory Effort Cardiovascular: Regular Rate, Regular Rhythm GI/Abdominal Exam: Normal Bowel Sounds, Soft, Non-Tender, Pelvis Stable Extremities: Normal Inspection, Normal Range of Motion, Non-Tender, Normal Capillary Refill, Pedal Edema Skin: Warm, Dry, Intact Neurological: No New Focal Deficit Psy/Mental Status: Alert, Normal Affect, Normal Mood - Problem List & Annotations (1) Term SNOMED Code(s): 61754597 Code(s): Z34.90 - ENCNTR FOR SUPRVSN OF NORMAL , UNSP, UNSP TRIMESTER Status: Acute Current Visit: Yes (2) Encounter for induction of labor SNOMED Code(s): 414937028 Code(s): Z34.90 - ENCNTR FOR SUPRVSN OF NORMAL , UNSP, UNSP TRIMESTER Status: Acute Current Visit: Yes (3) Advanced maternal age (AMA) in SNOMED Code(s): 102796025 Code(s): LTM8180 - Status: Acute Current Visit: Yes (4) Gestational hypertension SNOMED Code(s): 362377837 Code(s): O13.9 - GESTATIONAL HTN W/O SIGNIFICANT PROTEINURIA, UNSP TRIMESTER Status: Acute Current Visit: Yes Qualifiers: Trimester: third trimester Qualified Code(s): O13.3 - Gestational [-induced] hypertension without significant proteinuria, third trimester (5) Vaginal delivery SNOMED Code(s): 149975295 Code(s): O80 - ENCOUNTER FOR FULL-TERM UNCOMPLICATED DELIVERY Status: Acute Current Visit: Yes (6) started SNOMED Code(s): 247087146 Code(s): PLZ1995 - Status: Acute Current Visit: Yes - Problem List Review Problem List Initiated/Reviewed/Updated: Yes - My Orders Last 24 Hours: My Active Orders 03/10/20 13:30 Lactated Ringers [Ringers, Lactated] 1,000 ml IV ASDIRECTED 03/10/20 14:21 ePHEDrine [ePHEDrine sulfate] 10 mg IVPUSH ASDIRECTED PRN 03/10/20 14:22 Epidural Catheter Management [OM.PC] Urgent 03/10/20 14:30 Insert Urinary Catheter [OM.PC] ASDIRECTED 03/10/20 19:12 Consult to Wine Merchant [CONS] Routine Benzocaine [Whtn-I-Fpdgsqw 20% Fischer] See Dose Instructions TOP Q4H PRN Docusate Sodium [Colace] 100 mg PO BID PRN Lanolin [Lansinoh HPA] 1 gm TOP ASDIRECTED PRN Assess Lochia [WOMSER] Per Unit Routine Assess Uterine Involution [WOMSER] Per Unit Routine 03/10/20 19:13 Patient Status [ADT] Routine Vital Signs [RC] PFP Ice Therapy [OM.PC] Per Unit Routine Perineal Care [OM.PC] Per Unit Routine Sitz Bath [OM.PC] Per Unit Routine 03/10/20 19:33 Acetaminophen [Tylenol Bulk Bottle] 325 - 650 mg PO Q4H PRN Ibuprofen [Motrin Bulk Bottle] 600 mg PO Q6H PRN 03/11/20 08:00 Ferrous Sulfate 325 mg PO WITHBREAKFAST - Assessment Assessment:: 03/10/20 39 yo delivered female infant at 39 0/7 weeks Perineum intact FF and EBL 150 ml Plans to breastfeed No complications at delivery 03/11/20 PP day 1, no complications going well Voiding without problem No perineal pain, uterine cramping controlled with tylenol and ibuprofen Feels very well Would like to early discharge Hgb 10.1 - Plan Plan:: 03/10/20 Assessment: 39 yo here at 30 0/7 weeks for induction of labor due to AMA and gestational hypertension Normal reflexes, 1 beat clonus on left foot possible Declines headache or spots in vision today FHT's moderate variability and accelerations SVE 1.5/50/-2 Plan: Cytotec 50 mcg placed vaginally Intermittent monitoring after 1 hour Encourage up and moving Plan to reassess at noon Anticipate 03/10/20 support Routine pp cares Anticipate discharge 24-48 hours 03/11/20 Discharge home today with baby and Take BP daily at home, take labetalol as needed for BP >140/90 6 week pp check in clinic
== END 2020-03-11 10:20 | disposition home or self-care (01) | DRG 560 ==
LOC: JP.OB 07:05 → OBSVTOIN 18:51 → JP.OB 18:51 → JP.MS 21:45
PROVIDERS: ADMIT Advanced Practice Midwife; ATTEND Advanced Practice Midwife
PROC: 10E0XZZ Delivery of Products of Conception, External Approach (ICD-10-PCS; principal; 2020-03-10)
PROC: 10907ZC Drainage of Amniotic Fluid, Therapeutic from Products of Conception, Via Natural or Artificial Opening (ICD-10-PCS; 2020-03-10)
PROC: 3E0P7VZ Introduction of Hormone into Female Reproductive, Via Natural or Artificial Opening (ICD-10-PCS; 2020-03-10)
PROC: 3E0R3BZ Introduction of Anesthetic Agent into Spinal Canal, Percutaneous Approach (ICD-10-PCS; 2020-03-10)
PROC: 00HU33Z Insertion of Infusion Device into Spinal Canal, Percutaneous Approach (ICD-10-PCS; 2020-03-10)
DX: O13.4 Gestational [pregnancy-induced] hypertension without significant proteinuria, complicating childbirth (principal); Z3A.39 39 weeks gestation of pregnancy; Z37.0 Single live birth; O69.81X0 Labor and delivery complicated by cord around neck, without compression, not applicable or unspecified
CPT/HCPCS: 36415; 51702; 59409; 80053; 80305-QW; 81001; 82570; 83615; 84156; 85025; 85027; A9270-GY; J2590; J2795; J7120

== ENCOUNTER 2024-06-06 17:11 | Emergency (ER) | payer OTHER, BC | END 2024-06-06 18:01 | disposition home or self-care (01) | LOC: JP.ED 17:11 | DX: S41.151A Open bite of right upper arm, initial encounter (principal); Z79.899 Other long term (current) drug therapy; W55.01XA Bitten by cat, initial encounter | CPT/HCPCS: 99283 ==